=== PATIENT | male | born 1950 | race Caucasian/White ===

== ENCOUNTER 2025-03-25 20:06 | Emergency (ER) | payer MEDICARE, OTHER, SELFPAY ==
[2025-03-25 20:15] VITALS: BP 173/78
[2025-03-25 20:32] LABS: Hematocrit 39.0 % (39.0-52.0); Hemoglobin 13.2 g/dL (13.0-18.0); Mean Corp Hgb Conc. 33.8 g/dL (33.0-37.0); Mean Corpuscular Volume 84.6 fL (80.0-94.0); Nucleated Red Blood Cells % 0 % (-); Platelet Count 219 10^3/uL (130-400); Red Cell Dist. Width 13.1 % (11.5-14.5)
[2025-03-25 20:51] LABS: ALT (SGPT) 35 U/L (0-50); AST (SGOT) 38 U/L (17-59); Albumin 4.4 g/dl (3.5-5.0); Alkaline Phosphatase 55 U/L (38-126); Blood Urea Nitrogen 13 mg/dl (9-20); Calcium 9.3 mg/dl (8.4-10.2); Carbon Dioxide 25 mmol/L (22-30); Chloride 104 mmol/L (98-107); Glucose 103 mg/dl (70-99); Potassium 4.4 mmol/L (3.5-5.1); Sodium 134 mmol/L (135-145); Total Protein 7.1 g/dl (6.3-8.2); eGFR > 60.00
[2025-03-25 21:02] LABS: Troponin I < 0.012 ng/ml
[2025-03-25 22:22] VITALS: BP 132/72
[2025-03-25 22:30] VITALS: BMI 33.2
[2025-03-25] MEDS: MAALOX 50 PO (23:55)
--- NOTE | 2025-03-26 00:11 | ED.GENMED ---
History of Present Illness
General
Chief Complaint: Chest Pain
Source: patient and previous hospital records (Previous ED visit for somewhat similar complaint March 2023)
Exam Limitations: none
Time Seen by Provider: 03/25/25 23:15
Nursing documentation reviewed up to this point in time: agreed with
History of Present Illness
History of Present Illness:
The patient is a 74-year-old male presenting with a constant burning pressure in the chest, predominantly on the right side, ongoing for the past week. The patient reports that the discomfort is worse during the daytime, he is not waking up with
chest pain, and is not present upon waking. The symptoms manifest about an hour or two after rising in the morning and do not completely resolve throughout the day. Physical activity, such as walking around, seems to alleviate the discomfort
slightly. The patient denies any exacerbation of symptoms with meals, nausea, burping, cough, or shortness of breath. There is no back, neck, or other referred pain associated. The patient has been self-medicating with [id number] omeprazole,
20 mg daily, starting approximately seven to eight days ago due to a past diagnosis of gastroesophageal reflux disease (GERD), but reports no symptomatic improvement. He has not taken any other [id number] medication. There is no history of
recent upper respiratory symptoms or gastrointestinal changes such as diarrhea or constipation.
Evaluated in this ED March 2023 with somewhat similar chest pain complaint. Unremarkable cardiac as well as pulmonary workup at that time. Patient reports relief with GI cocktail and he was discharged to home with short course of Protonix 40
mg with reported complete relief until recently. He states current chest pain complaint feels very similar to that chest pain he experienced 2 years ago.
Past History
Past History
ED Past Medical History: HTN (Borderline hypertension) and Other (Murmur )
ED Past Surgical History: Other (Hernia repair)
Social History
Tobacco: Other (occasional cigar)
Alcohol: Occasional
Personal:
Living: with family
Employment: Retired
Family History
Family History: CAD (Mother with history of VT in her 70s)
Phy Exam
Physical Exam
Physical Exam:
GENERAL: 74-year-old gentleman appears his stated age, awake and alert, pleasant, appears in no acute distress. Easily communicative.
EYE: anicteric
NECK: Supple, nontender, no meningismus, no significant adenopathy.
ENT: oral mucosa is moist. No rhinorrhea.
CARDIAC: Regular rate and rhythm. no murmur. No chest wall tenderness.
LUNGS: Clear breath sounds bilaterally, no acute respiratory distress, no wheezes/rales/rhonchi
ABDOMEN: Rotund, soft, nondistended, without focal tenderness, no r/g, no cvat. normoactive BS.
NEUROLOGICAL: Alert and oriented x3, no focal neuro deficits.
SKIN: Warm and dry, normal color, skin intact. No rash.
MUSCULOSKELETAL: No C/C/E. peripheral pulses are full and equal b/l. No palpable tenderness.
PSYCH: Normal and appropriate interaction.
Scores
Heart Score for Chest Pain Patients
STEMI patient?: No
History: Slightly or Non-Suspicious
ECG: Normal
Age: >/= 65 years
Risk Factors: 1 or 2 Risk Factors
Troponin: </= Normal Limit
Heart Score for Chest Pain Patients: 3
Heart Score Risk: 2.5% MACE over next 6 weeks
Course
Orders/Labs/Results
Orders:
Orders
03/25/25 20:07
ECG [Electrocardiogram (*1)] Urgent
Reason for Study: Chest Pain
EKG- Treatment ONCE
03/25/25 20:25
Complete Blood Count/With Diff Urgent
Comprehensive Metabolic Panel Urgent
Troponin I Urgent
03/25/25 23:50
Mag Hydrox/Al Hydrox/Simeth [Maalox] 30 ml Phenobarb/Hyoscy/Atropine/Scop [] 10 ml Viscous Lidocaine 2% [Xylocaine Viscous Cup] 10 ml PO NOW
03/25/25 23:54
Mag Hydrox/Al Hydrox/Simeth [Maalox] 30 ml .ROUTE .STK-MED ONE
Phenobarb/Hyoscy/Atropine/Scop [] 10 ml .ROUTE .STK-MED ONE
Viscous Lidocaine 2% [Xylocaine Viscous Cup] 15 ml .ROUTE .STK-MED ONE
03/26/25 00:35
Sucralfate Suspension [Carafate Suspension] 1 gm PO NOW STA
03/26/25 01:01
Pantoprazole [Protonix] 40 mg PO NOW STA
Abnormal Lab Results
03/25/25
20:25
RBC 4.61 L 10^6/uL
(4.70-6.10)
Sodium 134 L mmol/L
(135-145)
Glucose 103 H mg/dl
(70-99)
03/25/25 20:25
03/25/25 20:25
Vital Signs
Initial and Last Documented VS:
Initial Vital Signs
Temp Pulse Resp BP Pulse Ox
98.4 F 78 16 173/78 98
03/25/25 20:15 03/25/25 20:15 03/25/25 20:15 03/25/25 20:15 03/25/25 20:15
Last Documented Vital Signs
Temp Pulse Resp BP Pulse Ox
98.4 F 70 17 132/72 96
03/25/25 20:15 03/26/25 00:00 03/26/25 00:00 03/25/25 22:22 03/26/25 00:18
MDM/Problems Addressed
Differential Diagnosis Includes:
The Differential Diagnosis includes, in no particular order and is not limited to:
1. Gastroesophageal Reflux Disease (GERD)
2. Costochondritis
3. Peptic Ulcer Disease
4. Non-cardiac chest pain
5. Musculoskeletal strain
6. Gallbladder disease
7. Anxiety-related chest pain
8. Pneumonia
9. Aortic dissection
10. Myocardial infarction (less likely given negative cardiac workup)
MDM/Problems Addressed:
Acute right-sided chest pain.
Thus far labs are unremarkable including negative troponin.
With ongoing chest discomfort over the past week or so, negative troponin, ACS is unlikely.
EKG shows normal sinus rhythm, nonspecific ST-T wave abnormalities but overall similar and unchanged from previous March 2023.
No history of thromboembolism nor risk factors for such.
Abdomen is soft without appreciable tenderness, nothing to suspect biliary colic.
Chest pain could certainly be GERD in nature and patient reports prompt relief with GI cocktail with similar chest pain he experienced 2 years ago.
Will trial GI cocktail now.
Chest x-ray considered but unremarkable 2 years ago and patient elects to hold off. Will consider imaging if no relief with GI cocktail.
*Pulse Oximetry
SaO2: 96
Oxygen Mode of Delivery: Room air
Patient hypoxic: no
*EKG
Interpreted by ED Provider?: Yes
Comparison EKG: no changes (Unchanged from previous March 2023)
Rate: normal
Rhythm: sinus
[place]: normal axis
Interval: normal interval
QRS Pattern: normal QRS
Ischemia: non-specific ST changes
*Nail Professional Interpretation
Rate: normal
Interpretation: normal
Rhythm: sinus
*Critical Care Note
Total Time (30-74mins, 75-104mins- exclusive of procedures): Not Applicable
Update Note
Update Note:
01:00
Moderate improvement in right-sided chest pain after GI cocktail and Carafate.
Will initiate a course of Protonix 40 mg daily.
Recommend prompt follow-up with PCP and due to family history of CAD will refer to our chest pain hotline.
Strict return precautions discussed.
ED Attending Note
-
Portions of this chart may have been created with voice recognition software.� Occasional wrong word or��sound alike� substitutions may have occurred due to the inherent limitations of voice recognition software.
Discharge Plan
Departure
Patient Disposition: Home (Routine Discharge)
Date of Disposition: 03/26/25
Time of Disposition: 01:03
Patient with high blood pressure during this ER visit?: Yes
Condition: Good
Discharge Problem:
Nonspecific chest pain
Instructions: Acid Reflux and GERD in Adults (DC), Chest Pain DCA Follow Up, BLOOD PRESSURE
Prescriptions:
New
pantoprazole [Protonix] 40 mg tablet,delayed release (DR/EC)
40 mg PO DAILY Qty: 30 1RF
No Action
gabapentin 300 mg Tablet Extended Release 24 Hr
300 mg PO PRN PRN (Reason: neuropathic pain)
pantoprazole [Protonix] 40 mg tablet,delayed release (DR/EC)
40 mg PO DAILY Qty: 10 0RF
Referrals:
Jennie Nguyen DO [Family Provider, Family Practice] - Call in 1-3 days for appt
Interventions
Interventions:
*Risk Screen - Suicide Last Done: 03/25/25 20:15
*General Assessment Last Done: 03/25/25 22:26
*Neglect/Abuse Screening Last Done: 03/25/25 20:15
*ED- Fall Risk Assessment Last Done: 03/25/25 22:26
*ED COVID-19 Vaccine History Last Done: 03/25/25 22:26
ED- Cardiac Assessment Last Done: 03/25/25 22:26
Discharge Date and Time
Print Language: [id number]
[2025-03-26] MEDS: CARAFATE SUSPENSION 1 GM PO (00:37)
[2025-03-26 00:41] VITALS: BP 133/71
[2025-03-26 01:00] VITALS: BP 134/67
[2025-03-26] MEDS: PROTONIX 40 MG PO (01:10)
== END 2025-03-26 01:15 | disposition home or self-care (01) ==
LOC: EMR 20:06
PROVIDERS: Emergency Medicine; EMERGENCY PHYSICIAN Emergency Medicine; FAMILY PHYSICIAN Family Medicine
DX: R07.9 Chest pain, unspecified (principal); I10 Essential (primary) hypertension; R01.1 Cardiac murmur, unspecified; K21.9 Gastro-esophageal reflux disease without esophagitis; F17.290 Nicotine dependence, other tobacco product, uncomplicated; Z82.49 Family history of ischemic heart disease and other diseases of the circulatory system
CPT/HCPCS: 99284; 80053; 84484; 85025; 93005

== ENCOUNTER → 2025-06-20 10:09 | Outpatient (REF) | payer MEDICARE, OTHER, SELFPAY | LOC: RCS 10:09 | PROVIDERS: ATTENDING PHYSICIAN Internal Medicine Cardiovascular Disease; FAMILY PHYSICIAN Physician Assistant | DX: R07.2 Precordial pain (principal) | CPT/HCPCS: 93306 ==

== ENCOUNTER → 2025-07-02 08:23 | Outpatient (REF) | payer MEDICARE, OTHER, SELFPAY ==
[2025-07-02 09:43] LABS: Hematocrit 39.6 % (39.0-52.0); Hemoglobin 13.2 g/dL (13.0-18.0); Mean Corp Hgb Conc. 33.3 g/dL (33.0-37.0); Mean Corpuscular Volume 84.8 fL (80.0-94.0); Nucleated Red Blood Cells % 0 % (-); Platelet Count 230 10^3/uL (130-400); Red Cell Dist. Width 13.4 % (11.5-14.5)
[2025-07-02 10:15] LABS: ALT (SGPT) 31 U/L (0-50); AST (SGOT) 25 U/L (17-59); Albumin 4.1 g/dl (3.5-5.0); Alkaline Phosphatase 60 U/L (38-126); Blood Urea Nitrogen 13 mg/dl (9-20); Calcium 8.7 mg/dl (8.4-10.2); Carbon Dioxide 25 mmol/L (22-30); Chloride 104 mmol/L (98-107); Glucose 92 mg/dl (70-99); HDL Cholesterol 41 mg/dl; LDL Cholesterol, Calculated 135 mg/dl; Potassium 4.2 mmol/L (3.5-5.1); Sodium 137 mmol/L (135-145); Total Protein 6.7 g/dl (6.3-8.2); Very Low Density Lipoprotein 19 mg/dl (0-30); eGFR > 60.00
[2025-07-02 10:17] LABS: Glycohemoglobin (HgbA1c) 5.7 % (4.0-5.9)
[2025-07-02 10:43] LABS: PSA, Total - Screen 0.70 ng/ml (0.0-4.0)
== END ==
LOC: REG 08:23
PROVIDERS: ATTENDING PHYSICIAN Physician Assistant; OTHER PHYSICIAN Internal Medicine Cardiovascular Disease
DX: Z00.00 Encounter for general adult medical examination without abnormal findings (principal); E78.2 Mixed hyperlipidemia; K21.9 Gastro-esophageal reflux disease without esophagitis; Z12.11 Encounter for screening for malignant neoplasm of colon; Z12.5 Encounter for screening for malignant neoplasm of prostate; R07.89 Other chest pain; I34.0 Nonrheumatic mitral (valve) insufficiency; E78.00 Pure hypercholesterolemia, unspecified; Z68.35 Body mass index [BMI] 35.0-35.9, adult
CPT/HCPCS: 36415; 80053; 80061; 83036; 84443; 85025; G0103